=== PATIENT | female | born 1975 | race Caucasian/White ===

== ENCOUNTER 2020-07-04 18:39 | Emergency (ER) | payer OTHER, SELFPAY ==
--- NOTE | ~2020-07-04 | XR_ITS ---
EXAMINATION: XR CHEST CLINICAL INFORMATION: Shortness of breath COMPARISON: 10/18/2017 TECHNIQUE: Frontal view of the chest was obtained. FINDINGS: Multiple wires overlie the chest. Cardiomediastinal silhouette is unremarkable. Low lung volumes. No dense consolidation, pleural effusion or pneumothorax. XR/XR chest 1V IMPRESSION: No acute cardiopulmonary process.
[2020-07-04 18:50] VITALS: BP 117/76; PULSE 93; RESP 16; TEMP 36.6; O2SAT 98; BMI 89.4
--- NOTE | 2020-07-04 20:08 | ECG_ITS ---
Test Reason : PALP Blood Pressure : / mmHG Vent. Rate : 083 BPM Atrial Rate : 083 BPM P-R Int : 144 ms QRS Dur : 090 ms QT Int : 392 ms P-R-T Axes : 059 -01 048 degrees QTc Int : 460 ms Normal sinus rhythm Moderate voltage criteria for LVH, may be normal variant Borderline ECG When compared with ECG of 17-OCT-2017 22:56, No significant change was found Referred By: Belen Matthew Electronically Signed By:Kin Villanueva
[2020-07-04 20:35] VITALS: BP 151/80; PULSE 72; RESP 18; TEMP 36.8; O2SAT 100
[2020-07-04 21:17] LABS: MANUAL DIFF FLAG NO
[2020-07-04 21:23] LABS: Basophils Percent Auto 0.2 % (0-2); Eosinophils Absolute Auto 0.2 X10*3/uL (0.0-0.4); Eosinophils Percent Auto 1.7 % (0-4); Hematocrit 42.6 % (37-47); Hemoglobin 13.2 g/dl (12.0-16.0); Imm Gran Abs Auto 0.05 X10*3/uL (0.00-0.03); Imm Gran Pct Auto 0.4 % (0.0-0.4); Lymphocytes Absolute Auto 2.6 X10*3/uL (1.2-4.9); Lymphocytes Percent Auto 21.7 % (20-40); Mean Corpuscular Hemoglobin 27.4 pg (27.0-33.0); Mean Corpuscular Volume 88.4 fL (80-98); Mean Platelet Volume 8.6 fL (9.4-12.3); Monocytes Absolute Auto 0.5 X10*3/uL (0.1-1.2); Monocytes Percent Auto 4.5 % (2-11); Neutrophils Absolute Auto 8.6 X10*3/uL (2.0-8.3); Neutrophils Percent Auto 71.5 % (45-73); Platelet Count 341 X10*3/uL (160-400); Red Blood Count 4.82 X10*6/uL (4.20-5.50); Red Cell Distribution Width 13.7 % (11.0-16.0)
[2020-07-04 21:49] LABS: Anion Gap 11 (12-20); Blood Urea Nitrogen 10 mg/dL (9-16); Calcium 8.3 mg/dL (8.4-10.2); Carbon Dioxide 29 mmol/L (22-29); Chloride 102 mmol/L (96-108); Creatinine Clr Calc Pharmacy 160.5; Estimated Glomerular Filt Rate > 60; Glucose Random 80 mg/dL (60-115); Potassium 4.7 mmol/L (3.3-5.1); Sodium 137 mmol/L (135-145)
[2020-07-04 21:56] LABS: Troponin-I High Sensitivity 3.8 ng/L (<3.5-17.0)
[2020-07-04 21:57] LABS: B Type Natriuretic Peptide < 10 pg/mL (<100)
[2020-07-04 22:00] LABS: Influenza A PCR NEGATIVE (Negative); Influenza B PCR NEGATIVE (Negative); Resp Syncy Virus RNA Qual PCR NEGATIVE (Negative); SARS COV2 PCR INHOUSE NEGATIVE (Negative)
[2020-07-04 22:11] LABS: TSH reflex Free T4 1.54 uIU/mL (0.32-4.0)
[2020-07-04 22:27] VITALS: BP 145/77; PULSE 84; RESP 14; TEMP 36.9; O2SAT 99
--- NOTE | 2020-07-04 22:38 | ED_ITS ---
HPI - Arrhythmia/Palpitations General Chief Complaint: Arrhythmia/Palpitations Stated Complaint: DIFF BREATHING Time Seen by Provider: 07/04/20 19:51 Source: patient Mode of arrival: ambulatory History of Present Illness HPI narrative: 45-year-old female with a past medical history of asthma presenting to the ED complaining of cough, dyspnea on exertion, and sternal palpitations x3 days. Reports coughing so much causes chest discomfort. Denies fever, chills, LE edema, recent travel, sick contacts, abdominal pain, nausea/vomiting MD complaint: heart racing Related Data Previous Rx's Medication Instructions Recorded benzonatate [Tessalon Perles] 100 mg PO TID PRN #14 cap 07/04/20 Allergies Allergy/AdvReac Type Severity Reaction Status Date / Time codeine [CODEINE] Allergy Unknown DIFFICULTY Verified 07/04/20 18:58 BREATHING penicillin V Allergy Unknown rash Verified 07/04/20 18:58 Penicillins [PENICILLINS] Allergy Unknown DIFFICULTY Verified 07/04/20 18:58 BREATHING Codeine Sulfate Allergy Unknown shortness Uncoded 07/04/20 18:58 of breath Review of Systems Review of Systems: Constitutional: No Fever, No Chills Cardiovascular: No Chest Pain, + SOB, + Dyspnea on Exertion, No Orthopnea, No Edema, + Palpitations Respiratory: + Cough, + Sputum, No Wheezing Gastrointestinal: No Nausea, No Vomiting, No Diarrhea, No Constipation, No Abdominal pain Musculoskeletal: No joint pain, No Myalgias, No Joint Swelling Skin: No Skin Lesions, No rash Neuro: No Weakness, No Numbness, No Paresthesias, No Headache Yes all other systems are reviewed and are negative [facility], [facility] Past Medical History Attestation statement: The following information was validated with the patient. Medical History (Updated 07/04/20 @ 22:49 by LORETTA Whyte) Asthma Social History Social History Advance Directives: No Advance Directives Information Provided: Yes Physical Exam Vital Signs: Vital Signs: Last Vital Signs Temp 98.5 F 07/04/20 22:27 Pulse 84 07/04/20 22:27 Resp 14 07/04/20 22:27 BP 145/77 H 07/04/20 22:27 Pulse Ox 99 07/04/20 22:27 Body Mass Index 89.4 Const: General: cooperative Nutritional Appearance: obese Orientation/consciousness: patient oriented x3 Limitations: no limitations HENMT: Head: Yes normal to inspection Ears: hearing grossly normal bilaterally General nose exam: Normal external nose present Face and sinus: Yes normal facial exam Eyes: General: appearance normal, both eyes and all related structures EOM: EOMs intact bilaterally Neck: Neck: Yes normal visual inspection Resp: Effort & Inspection: normal respiratory effort Auscultation: clear to auscultation bilaterally, no rales, no rhonchi and no wheezes Cardio: Rate: regular rate Heart sounds: S1 normal heart sound present and S2 normal heart sound present GI: Inspection: Yes normal to inspection Palpation (GI): Soft to palpation, nontender, no guarding and not rigid Skin: Rashes: no rashes Wounds: no wounds Neuro: General: patient oriented x3 Gait exam (Neuro): Normal gait present Extrem: General: Yes normal to inspection, Yes no pedal edema and Yes no calf tenderness Course Course Course Narrative: -mild leukocytosis of 12, troponin negative, TSH WNL -COVID-19/influenza/RSV negative XR chest 1V IMPRESSION: No acute cardiopulmonary process >> results discussed with patient including worrisome signs and symptoms and strict return precautions. Supplied with albuterol inhaler in the ED. Is to follow up with PCP. She verbalized understanding feel safe for discharge home MDM - Arrhythmia/Palpitations MDM Narrative Medical decision making narrative: 45-year-old female with a past medical history of asthma presenting to the ED complaining of cough, dyspnea on exertion, and sternal palpitations x3 days. On exam VSS, NAD/obese, lungs CTA. Rule out ACS vs metabolic abnormalities vs CHF vs viral syndrome/pneumonia. Low concern for PE. Plan: EKG, labs, CXR, reassess, anticipated DC home Lab Data Result diagrams: 07/04/20 21:09 07/04/20 21:09 Labs: Lab Results 07/04/20 07/04/20 07/04/20 Range/Units 21:09 21:09 21:09 WBC 12.0 H (4.8-10.8) X10*3/uL RBC 4.82 (4.20-5.50) X10*6/uL Hgb 13.2 (12.0-16.0) g/dl Hct 42.6 (37-47) % MCV 88.4 (80-98) fL MCH 27.4 (27.0-33.0) pg MCHC 31.0 (31.0-35.0) g/dl RDW 13.7 (11.0-16.0) % Plt Count 341 (160-400) X10*3/uL MPV 8.6 L (9.4-12.3) fL Immature Gran % (Auto) 0.4 (0.0-0.4) % Neut % (Auto) 71.5 (45-73) % Lymph % (Auto) 21.7 (20-40) % [place] % (Auto) 4.5 (2-11) % Eos % (Auto) 1.7 (0-4) % Baso % (Auto) 0.2 (0-2) % Lymph # (Auto) 2.6 (1.2-4.9) X10*3/uL [place] # (Auto) 0.5 (0.1-1.2) X10*3/uL Eos # (Auto) 0.2 (0.0-0.4) X10*3/uL Baso # (Auto) 0.0 (0.0-0.2) X10*3/uL Abs Immat Gran (auto) 0.05 H (0.00-0.03) X10*3/uL Absolute Neuts (auto) 8.6 H (2.0-8.3) X10*3/uL Absolute Nucleated RBC 0.000 (0.0-0.012) X10*3/uL Nucleated RBC % (auto) 0.0 (0.0-0.2) /100WBC Hold Blue Top Sodium 137 (135-145) mmol/L Potassium 4.7 (3.3-5.1) mmol/L Chloride 102 (96-108) mmol/L Carbon Dioxide 29 (22-29) mmol/L Anion Gap 11 L (12-20) BUN 10 (9-16) mg/dL Creatinine 0.80 (0.5-1.4) mg/dL Estim Creat Clear Calc 160.5 Estimated GFR > 60 Random Glucose 80 (60-115) mg/dL Calcium 8.3 L (8.4-10.2) mg/dL Troponin I High Sens 3.8 (<3.5-17.0) ng/L B-Natriuretic Peptide (<100) pg/mL TSH 1.54 (0.32-4.0) uIU/mL Coronavirus (PCR) (Negative) Influenza Type A (PCR) (Negative) Influenza Type B (PCR) (Negative) RSV RNA Qual (PCR) (Negative) 07/04/20 07/04/20 07/04/20 Range/Units 21:09 21:09 21:09 WBC (4.8-10.8) X10*3/uL RBC (4.20-5.50) X10*6/uL Hgb (12.0-16.0) g/dl Hct (37-47) % MCV (80-98) fL MCH (27.0-33.0) pg MCHC (31.0-35.0) g/dl RDW (11.0-16.0) % Plt Count (160-400) X10*3/uL MPV (9.4-12.3) fL Immature Gran % (Auto) (0.0-0.4) % Neut % (Auto) (45-73) % Lymph % (Auto) (20-40) % [place] % (Auto) (2-11) % Eos % (Auto) (0-4) % Baso % (Auto) (0-2) % Lymph # (Auto) (1.2-4.9) X10*3/uL [place] # (Auto) (0.1-1.2) X10*3/uL Eos # (Auto) (0.0-0.4) X10*3/uL Baso # (Auto) (0.0-0.2) X10*3/uL Abs Immat Gran (auto) (0.00-0.03) X10*3/uL Absolute Neuts (auto) (2.0-8.3) X10*3/uL Absolute Nucleated RBC (0.0-0.012) X10*3/uL Nucleated RBC % (auto) (0.0-0.2) /100WBC Hold Blue Top SEE NOTE Sodium (135-145) mmol/L Potassium (3.3-5.1) mmol/L Chloride (96-108) mmol/L Carbon Dioxide (22-29) mmol/L Anion Gap (12-20) BUN (9-16) mg/dL Creatinine (0.5-1.4) mg/dL Estim Creat Clear Calc Estimated GFR Random Glucose (60-115) mg/dL Calcium (8.4-10.2) mg/dL Troponin I High Sens (<3.5-17.0) ng/L B-Natriuretic Peptide < 10 (<100) pg/mL TSH (0.32-4.0) uIU/mL Coronavirus (PCR) NEGATIVE (Negative) Influenza Type A (PCR) NEGATIVE (Negative) Influenza Type B (PCR) NEGATIVE (Negative) RSV RNA Qual (PCR) NEGATIVE (Negative) Discharge Plan Discharge Clinical Impression: Acute viral syndrome, Heart palpitations Patient Disposition: Home, Self-Care Instructions: Viral Syndrome (ED) Additional Instructions: Your blood work and chest x-ray were reassuring today in the ED Use albuterol inhaler at home as needed for shortness of breath/wheezing Tessalon Perles for cough Continue take Tylenol as needed at home You need to follow-up with her primary care doctor If her symptoms persist or worsen, constant worsening chest pain, shortness of breath, fever, chills, cough return to the ED Prescriptions: New benzonatate [Tessalon Perles] 100 mg capsule 100 mg PO TID PRN (Reason: cough) Qty: 14 RF: 0 Referrals: Po,Justin Terry MD [Primary Care Provider] - 2 days
[2020-07-04] MEDS: Albuterol Sulfate 90 MCG 8 GM INHALER 4 PUFF INHALE (22:58)
[2020-07-04] MEDS: Butalb/Acetamin/Caff 50/325/40 TABLET 1 TAB PO (22:58)
== END 2020-07-04 23:18 | disposition home or self-care (01) ==
PROVIDERS: Physician Assistant; Emergency Provider Emergency Medicine; PCP Internal Medicine
DX: B34.9 Viral infection, unspecified (principal); R00.2 Palpitations; R06.02 Shortness of breath; R05 Cough; Z79.899 Other long term (current) drug therapy; Z20.822 Contact with and (suspected) exposure to COVID-19
CPT/HCPCS: 0241U; 36415; 71045; 80048; 83880; 84443; 84484; 85025; 93005; 99283; 99284

== ENCOUNTER 2021-07-14 10:20 | Emergency (ER) | payer OTHER, SELFPAY ==
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
[2021-07-14 11:07] VITALS: BP 154/88; PULSE 100; RESP 19; TEMP 36.3; O2SAT 98; BMI 93.6
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
[2021-07-14 11:27] VITALS: BP 147/88; PULSE 87; RESP 18; TEMP 37.1; O2SAT 98
[2021-07-14 12:15] LABS: Carbon Monoxide Refer to POC result
[2021-07-14 12:16] LABS: Carbon Monoxide POC 3.1 %
[2021-07-14 12:25] VITALS: BP 177/79; PULSE 74; RESP 13; TEMP 36.6; O2SAT 99
[2021-07-14 12:55] LABS: Appearance Urine HAZY; Color Urine YELLOW; Glucose Urine UA NEG (NEG); Leukocyte Esterase Urine 1+ (NEG); Nitrite Urine POS (NEG); PH 6.5 (5.0-8.0); Specific Gravity - Urine 1.015 (1.005-1.025); UACC Culture Trigger YES; Urine Blood NEG (NEG); Urine Ketones NEG (NEG); Urine Protein NEG (NEG-TRACE)
[2021-07-14 13:06] LABS: Squamous Epithelial Cell Urine 2+ /LPF
[2021-07-14 13:07] LABS: Bacteria Urine 4+ /LPF; WBC Urine 0-2 /HPF (0-4)
[2021-07-14 13:08] LABS: RBC Urine 0 /HPF (0)
== END 2021-07-14 13:54 | disposition home or self-care (01) ==
PROVIDERS: Physician Assistant; Emergency Provider Emergency Medicine; PCP Internal Medicine
DX: R05.9 Cough, unspecified (principal); X00.1XXA Exposure to smoke in uncontrolled fire in building or structure, initial encounter; Y93.9 Activity, unspecified; N39.0 Urinary tract infection, site not specified; F17.200 Nicotine dependence, unspecified, uncomplicated; Y92.039 Unspecified place in apartment as the place of occurrence of the external cause; Y99.9 Unspecified external cause status
CPT/HCPCS: 36415; 71046; 81001; 82375; 87086; 87088; 87186; 99283; 99284